=== PATIENT | male | born 1960 | race African-American/Black ===

== ENCOUNTER 2016-03-28 22:23 | Emergency (ER) | payer OTHER ==
[~2016-03-28] VITALS: Ht 170.2 cm; Wt 79.4 kg
[~2016-03-28 22:23] MED LIST: CIPROFLOXACIN500 M2 ORAL; DOXYCYCLINE MO100 MG ORAL; NKM; VIBRAMYCIN100 MG ORAL
[2016-03-28 22:35] VITALS: BP 145/84
[2016-03-28] MEDS ORDERED: Azithromycin 250mg tab ORAL ONE (22:45)
--- NOTE | 2016-03-28 22:47 | Emergency Room Report ---
History of Present Illness General Chief Complaint: Male Urogenital Problems Source: Patient Present Illness [facility] This is a 55-year-old male with no significant past medical history. He's been here several times for same complaint. He complaining of dysuria and a clear discharge. Onset for last 3 days. Said he is sexually active and unprotected sex. Denies any nausea vomiting. Denies any hematuria. Similar symptom this before. Allergies: Coded Allergies: No Known Allergies (Unverified , 03/17/13) Patient History Past Medical History: see triage record, old chart reviewed Past Surgical History: none Pertinent Family History: none Social History: Denies: smoking Immunizations: other Reviewed Nursing Documentation: PMH: Agreed, PSxH: Agreed Nursing Documentation-PMH Past Medical History: No Stated History Review of Systems Eye: Denies: blurred vision, eye pain ENT: Denies: ear pain, nose congestion, throat swelling Respiratory: Denies: cough, shortness of breath Cardiovascular: Denies: chest pain, palpitations Gastrointestinal: Denies: abdominal pain, diarrhea, nausea, vomiting Genitourinary: Reports: discharge, dysuria Musculoskeletal: Denies: back pain, joint pain Skin: Denies: rash Neurological: Denies: headache, numbness Endocrine: Denies: increased thirst, increased urine Hematologic/Lymphatic: Denies: easy bruising All Other Systems: negative except mentioned in HPI Physical Exam Vital Signs Date Time Temp Pulse Resp B/P Pulse Ox O2 Delivery O2 Flow Rate FiO2 03/28/16 22:30 98.1 80 19 145/84 95 Room Air vitals normal Sp02 EP Interpretation: reviewed, normal General Appearance: well appearing, no apparent distress, alert Head: normocephalic, atraumatic Eyes: bilateral eye EOMI, bilateral eye PERRL ENT: hearing grossly normal, normal pharynx Neck: full range of motion, supple, no meningismus Respiratory: chest non-tender, lungs clear, normal breath sounds Cardiovascular #1: regular rate, rhythm, no murmur Gastrointestinal: normal bowel sounds, non tender, no mass, no organomegaly, no bruit, non-distended Genitourinary: scrotum normal, other - Penis: Clear discharge. No testicle tenderness. Musculoskeletal: back normal, gait/station normal, normal range of motion Neurologic: alert, oriented x3 Psychiatric: mood/affect normal Skin: warm/dry Medical Decision Making Diagnostic Impression: Primary Impression: urethritis ER Course Patient with urethritis. Most likely Chlamydia. Strongly urged patient use condoms. He is increased risk for HIV, hepatitis, syphilis and other STDs. No evidence of testicular torsion. Last Vital Signs Date Time Temp Pulse Resp B/P Pulse Ox O2 Delivery O2 Flow Rate FiO2 03/28/16 22:35 98.1 82 19 145/84 95 Room Air Status: improved Disposition: HOME, SELF-CARE Condition: Stable Patient Instructions: Urethritis, Adult Additional Instructions: Always use condoms with intercourse. Urine crease this for HIV, hepatitis, syphilis and other STDs. Recommend outpatient testing for these. Followup your doctor in a week. Return if symptom worsen. Have your partners treated also. NICOLAS SHEA M.D. Mar 28, 2016 22:47
[2016-03-28] MEDS ORDERED: Lidocaine 1% MPF 10mg/ml 5ml ONE (22:55)
[2016-03-28 23:03] VITALS: BP 145/84
== END 2016-03-28 23:03 | disposition home or self-care (01) ==
LOC: EMR 22:35
DX: N34.2 Other urethritis (principal)
CPT/HCPCS: 96372; 99283; J0696

== ENCOUNTER 2016-09-23 09:58 | Emergency (ER) | payer OTHER ==
[~2016-09-23] VITALS: Ht 170.2 cm; Wt 79.4 kg
[2016-09-23 10:24] VITALS: BP 157/87
[2016-09-23 10:36] LABS: APPEARANCE,URINE CLEAR; KETONES,URINE 1+ (NEGATIVE); LEUKOCYTE ESTERASE ,URINE 1+ (NEGATIVE); NITRITE,URINE NEGATIVE (NEGATIVE); PH,URINE 5 (4.5-8.0); PROTEIN,URINE NEGATIVE (NEGATIVE); UROBILINOGEN,URINE NORMAL MG/DL (0.0-1.0)
--- NOTE | 2016-09-23 10:44 | Emergency Room Report ---
History of Present Illness General Chief Complaint: Male Urogenital Problems Source: Patient Present Illness HPI Patient with unprotected sex with "old friend". Dysuria now. No lymph node swell, rashes, hematuria, discharge, fevers, joint pain, eye d/c. Reports 10/ 10 pain in penis. No chest pain, dyspnea, abdominal pain. Has had before. Allergies: Coded Allergies: No Known Allergies (Unverified , 03/17/13) Patient History Past Medical History: see triage record Social History: Denies: smoking Social History Narrative at home Reviewed Nursing Documentation: PMH: Agreed, PSxH: Agreed Nursing Documentation-PMH Past Medical History: No Stated History Review of Systems All Other Systems: negative except mentioned in HPI Physical Exam Vital Signs Date Time Temp Pulse Resp B/P Pulse Ox O2 Delivery O2 Flow Rate FiO2 09/23/16 10:02 97.3 74 16 157/87 97 Room Air Sp02 EP Interpretation: reviewed, normal General Appearance: well appearing, no apparent distress Head: normocephalic, atraumatic Eyes: bilateral eye normal inspection ENT: hearing grossly normal, normal voice Neck: full range of motion, supple Respiratory: no respiratory distress, speaking full sentences Genitourinary: normal inspection, no CVA tenderness Musculoskeletal: no calf tenderness Neurologic: alert, oriented x3, normal gait, grossly normal Psychiatric: mood/affect normal Skin: no rash Medical Decision Making Diagnostic Impression: Primary Impression: Exposure to sexually transmitted disease (STD) ER Course Patient with dysuria after unprotected sex. DDx: STD, UTI, urethritis. Will treat for STD and send serologies. Advised to get further testing. Patient stable for outpatient observation and treatment. Laboratory Tests Test 09/23/16 10:15 Urine Color Yellow Urine Appearance Clear Urine pH 5 (4.5-8.0) Urine Specific [place] 1.020 (1.005-1.035) Urine Protein Negative (NEGATIVE) Urine Glucose (UA) Negative (NEGATIVE) Urine Ketones 1+ (NEGATIVE) H Urine Occult Blood Negative (NEGATIVE) Urine Nitrite Negative (NEGATIVE) Urine Bilirubin Negative (NEGATIVE) Urine Urobilinogen Normal MG/DL (0.0-1.0) Urine Leukocyte Esterase 1+ (NEGATIVE) H Urine RBC 0-2 /HPF (0 - 0) H Urine WBC 0-2 /HPF (0 - 0) Urine Squamous Epithelial Cells Occasional /LPF Urine Bacteria Occasional /HPF (NONE) Urine Mucus Few /LPF (NONE/OCC) H Chlamydia trachomatis RNA Pending Neisseria gonorrhoeae RNA Pending Last Vital Signs Date Time Temp Pulse Resp B/P Pulse Ox O2 Delivery O2 Flow Rate FiO2 09/23/16 13:30 97.3 16 157/87 97 Room Air 09/23/16 10:02 74 Status: improved Disposition: HOME, SELF-CARE Condition: Stable Scripts Doxycycline Hyclate* (VIBRAMYCIN*) 100 Mg Capsule 100 MG ORAL EVERY 12 HOURS, #14 CAP 0 Refills Prov: Sylvester Saleh M.D. 09/23/16 Referrals: Peggy MOSER,REFERRING (PCP) Sylvester Saleh M.D. Sep 23, 2016 10:44
[2016-09-23] MEDS ORDERED: VIBRAMYCIN100 MG ORAL (10:45)
[2016-09-23 10:49] LABS: BACTERIA,URINE OCCASIONAL /HPF; MUCUS,URINE FEW /LPF (NONE/OCC); RBC,URINE 0-2 /HPF (0 - 0); SQUAMOUS EPITHELIAL CELL,UR OCCASIONAL /LPF (NONE/OCC); WBC,URINE 0-2 /HPF (0 - 0)
[2016-09-23 13:30] VITALS: BP 157/87
== END 2016-09-23 13:32 | disposition home or self-care (01) ==
LOC: EMR 10:38
DX: R30.0 Dysuria (principal); A64 Unspecified sexually transmitted disease
CPT/HCPCS: 81003; 87491; 87590; 96372; 99283; J0696

== ENCOUNTER 2017-05-08 19:03 | Emergency (ER) | payer OTHER ==
[~2017-05-08] VITALS: Ht 170.2 cm; Wt 83.9 kg
[2017-05-08] MEDS ORDERED: Tetracaine 0.5% Opth 4ml Soln RIGHT EYE ONE (19:45)
[2017-05-08] MEDS ORDERED: Fluorescein Strips BOTH EYES ONE (19:45)
[2017-05-08] MEDS ORDERED: Tetracaine 0.5% Opth 4ml Soln LEFT EYE ONE (19:45)
--- NOTE | 2017-05-08 19:48 | Emergency Room Report ---
History of Present Illness General Chief Complaint: Eye Problems Source: Patient Present Illness HPI 57 yo male patient presents to ER complaining of bilateral eye itching [id number]. Patient reports crusting of eyelids in the morning; states crust is yellow in color. Patient reports using saline eye drops with no relief of symptoms. Patient denies allergies. Patient complains of FB sensation. Patient denies pain with eye movement. Patient denies chemicals spilled on eyes. Patient denies photophobia. Patient denies loss of vision, hearing problems, HAYES. Patient denies fever, chest pain, SOB, nausea, vomiting. Patient reports he wears glasses for reading only; denies wearing contact lenses. Allergies: Coded Allergies: No Known Allergies (Unverified , 03/17/13) Patient History Past Medical History: see triage record Social History: Denies: smoking, alcohol use, drug use Reviewed Nursing Documentation: PMH: Agreed, PSxH: Agreed Nursing Documentation-PMH Past Medical History: No Stated History Review of Systems All Other Systems: negative except mentioned in HPI Physical Exam Vital Signs Date Time Temp Pulse Resp B/P (MAP) Pulse Ox O2 Delivery O2 Flow Rate FiO2 05/08/17 19:28 98.0 81 18 149/79 98 Room Air 98.1 Sp02 EP Interpretation: reviewed, normal General Appearance: well appearing, no apparent distress, alert, GCS 15, non- toxic Head: normocephalic, atraumatic Eyes: bilateral eye normal inspection, bilateral eye PERRL, bilateral eye fluoroscene uptake - none, bilateral eye EOMI, bilateral eye visual acuity - 20/ 15 OD, 20/15 OS, 20/15 OU per nurse report, bilateral eye Scleral Injection - mild, bilateral eye other - no periorbital edema, no ecchymosis, negative raccon eyes ENT: hearing grossly normal, normal pharynx, normal voice, TMs + canals normal , uvula midline, moist mucus membranes Neck: normal inspection, full range of motion, no bony tend Respiratory: normal inspection, lungs clear, normal breath sounds, no rhonchi, no accessory muscle use, no wheezing, speaking full sentences Cardiovascular #1: regular rate, rhythm Musculoskeletal: back normal, digits/nails normal, gait/station normal, normal range of motion, no calf tenderness Neurologic: alert, oriented x3, responsive, motor strength/tone normal, normal gait Psychiatric: mood/affect normal Skin: no rash Lymphatic: no adenopathy Medical Decision Making PA Attestation Dr. Saleh is my supervising Physician whom patient management has been discussed with. Diagnostic Impression: Primary Impression: Bacterial conjunctivitis ER Course Pt. presents to the ED c/o itchy eyes bilaterally. Ddx considered but are not limited to allergic conjunctivitis, bacterial conjunctivitis, corneal abrasion, URI, sinusitis. Vital signs: are WNL, pt. is afebrile Ordered fluorescein strips and tetracaine drops. VA performed, results normal. ER COURSE: Applied tetracaine medication to both eyes, bilaterally. Touched fluorescein strip to eyes, bilaterally. Separate strips used for each eye. No increased uptake of fluorescein under Mercer lamp; negative for corneal abrasion, herpetic keratitis. Informed patient of results. Informed patient likely bacterial conjunctivitis, will treat with antibiotic eye drops. Patient seen and evaluated by Dr. Saleh; agrees with diagnosis and treatment plan. DISCHARGE: Rx provided for Ocufloxacin drops. Rx provided for Opcon-A eye drops. Informed patient to apply to both eyes. Informed patient to not touch eye drop bottle directly to eyes or bottle will be contaminated. Informed patient to wash hands and avoid touching eyes throughout the day. At this time pt. is stable for d/c to home. Will provide printed patient care instructions, and any necessary prescriptions. Patient instructed to follow up with primary care provider and discuss further follow up with stoker installer. Care plan and follow up instructions have been discussed with the patient prior to discharge. Patient questions asked and answered. Patient reports understanding and agreement to treatment plan. ER precautions given to patient. Patient instructed to return to ER immediately for any new or worsening of symptoms. Last Vital Signs Date Time Temp Pulse Resp B/P (MAP) Pulse Ox O2 Delivery O2 Flow Rate FiO2 05/08/17 19:28 98.0 81 18 149/79 98 Room Air 98.1 Disposition: HOME, SELF-CARE Condition: Stable Scripts Naphazoline Hcl/Pheniramine (OPCON-A EYE DROPS) 15 Ml Drops 4 ML OP FOUR TIMES A DAY for 7 Days, ML Prov: Shay Gamble P.A. 05/08/17 Ofloxacin (OCUFLOX) 5 Ml Drops 2 DROP OP FOUR TIMES A DAY for 7 Days, #5 ML Prov: Shay Gamble P.A. 05/08/17 Patient Instructions: Bacterial Conjunctivitis, [id number] Additional Instructions: Followup with primary care provider in 3 -5 days. Followup with stoker installer for eye examination. Take medications as directed. Patient questions asked and answered. ER precautions given, patient instructed to return to ER immediately for any new or worsening of symptoms. Shay Gamble May 08, 2017 19:47
[2017-05-08 20:11] VITALS: BP 144/77
[2017-05-08] MEDS ORDERED: OCUFLOX5 ML OP (20:12)
[2017-05-08] MEDS ORDERED: OPCON-A EYE DRO15 ML OP (20:12)
[2017-05-08 20:21] VITALS: BP 144/77
== END 2017-05-08 20:19 | disposition home or self-care (01) ==
LOC: EMR 19:44
DX: H10.89 Other conjunctivitis (principal); B96.89 Other specified bacterial agents as the cause of diseases classified elsewhere
CPT/HCPCS: 99283

== ENCOUNTER 2017-06-17 06:06 | Emergency (ER) | payer OTHER ==
[~2017-06-17] VITALS: Ht 170.2 cm; Wt 79.4 kg
[~2017-06-17 06:06] MED LIST changes: +OCUFLOX5 ML OP; +OPCON-A EYE DRO15 ML OP
[2017-06-17 06:25] VITALS: BP 141/86
[2017-06-17] MEDS: Lidocaine 1% MPF 10mg/ml 5ml INJ ONE (06:58)
[2017-06-17] MEDS: Azithromycin 250mg tab ORAL ONE (06:59)
[2017-06-17 07:08] VITALS: BP 141/86
--- NOTE | 2017-06-17 08:08 | Emergency Room Report ---
History of Present Illness General Chief Complaint: Male Urogenital Problems Source: Patient Present Illness HPI 57-year-old male presents ED for evaluation. States that recently had unprotected sex with his ex-. Has noticed burn full urination and discharge. White discharge. Denies fevers or chills. Denies scrotal tenderness. States he's had similar presentation in the past and had been treated for presumed STD. No other aggravating relieving factors. Denies any other associated symptoms Allergies: Coded Allergies: No Known Allergies (Unverified , 03/17/13) Patient History Past Medical History: none Past Surgical History: none Pertinent Family History: none Social History: Denies: smoking, alcohol use, drug use Immunizations: UTD Reviewed Nursing Documentation: PMH: Agreed; PSxH: Agreed Nursing Documentation-PMH Past Medical History: No Stated History Review of Systems All Other Systems: negative except mentioned in HPI Physical Exam Vital Signs Date Time Temp Pulse Resp B/P (MAP) Pulse Ox O2 Delivery O2 Flow Rate FiO2 06/17/17 06:12 97.4 72 18 141/86 98 Room Air 97.3 Sp02 EP Interpretation: reviewed, normal General Appearance: no apparent distress, alert, GCS 15, non-toxic Head: normocephalic, atraumatic Eyes: bilateral eye normal inspection, bilateral eye PERRL ENT: hearing grossly normal, normal pharynx, no angioedema, normal voice Neck: full range of motion, supple/symm/no masses Respiratory: chest non-tender, lungs clear, normal breath sounds, speaking full sentences Cardiovascular #1: regular rate, rhythm, no edema Cardiovascular #2: 2+ carotid (R), 2+ carotid (L), 2+ radial (R), 2+ radial (L) , 2+ dorsalis pedis (R), 2+ dorsalis pedis (L) Gastrointestinal: normal bowel sounds, non tender, soft, non-distended, no guarding, no rebound Rectal: deferred Genitourinary: normal inspection, no CVA tenderness Musculoskeletal: back normal, gait/station normal, normal range of motion, non- tender Neurologic: alert, oriented x3, responsive, motor strength/tone normal, sensory intact, speech normal Psychiatric: judgement/insight normal, memory normal, mood/affect normal, no suicidal/homicidal ideation Reflexes: 3+ bicep (R), 3+ bicep (L), 3+ tricep (R), 3+ tricep (L), 3+ knee (R) , 3+ knee (L) Skin: normal color, no rash, warm/dry, well hydrated Lymphatic: no adenopathy Medical Decision Making Diagnostic Impression: Primary Impression: urethritis ER Course Hospital Course 57-year-old male presents ED with urethral discharge. History of unprotected sex Differential diagnoses include: trichimonas, gonorrhea, chlamydia Clinical course Patient placed on stretcher. After initial history physical exam reveals a young male in no acute distress. Physical exam unremarkable. No testicular pain or swelling. No noted urethral discharge We will treat him clinically for gonorrhea/Chlamydia Given azithromycin/Rocephin in ED Diagnosis - STI, urethritis Stable and discharged home. Instructed to followup with PMD. Return to ED if symptoms recur or worsen Last Vital Signs Date Time Temp Pulse Resp B/P (MAP) Pulse Ox O2 Delivery O2 Flow Rate FiO2 18 07:08 97.3 72 18 141/86 98 Room Air 97.3 Status: improved Disposition: HOME, SELF-CARE Condition: Stable Referrals: Peggy MOSERREFERRING (PCP) Patient Instructions: Urethritis, Adult Neno Banks MD Jun 17, 2017 08:08
== END 2017-06-17 07:08 | disposition home or self-care (01) ==
LOC: EMR 06:27
DX: N34.2 Other urethritis (principal)
CPT/HCPCS: 96372; 99283; J0696

== ENCOUNTER 2017-12-10 10:21 | Emergency (ER) | payer OTHER ==
[~2017-12-10] VITALS: Ht 170.2 cm; Wt 83.9 kg
[2017-12-10 10:24] VITALS: BP 132/83
[2017-12-10] MEDS ORDERED: NKM (10:28)
[2017-12-10] MEDS ORDERED: ZYRTEC10 MG ORAL (10:41)
--- NOTE | 2017-12-10 10:41 | Emergency Room Report ---
History of Present Illness General Chief Complaint: Eye Problems Source: Patient Present Illness [facility] This patient c/o red, itchy, irritated eyes for about a month; most days. He has tried OTC eye drops. No exposure. No fever, no URI complaints. No PMH/Meds. Allergies: Coded Allergies: No Known Allergies (Unverified , 03/17/13) Nursing Documentation-PMH Past Medical History: No Stated History Review of Systems Constitutional: Reports: no symptoms Eye: Reports: see HPI, other - itchy eyes ENT: Reports: no symptoms Respiratory: Reports: no symptoms Cardiovascular: Reports: no symptoms Gastrointestinal: Reports: no symptoms Genitourinary: Reports: no symptoms Musculoskeletal: Reports: no symptoms Skin: Reports: no symptoms Psychiatric: Reports: no symptoms Neurological: Reports: no symptoms Endocrine: Reports: no symptoms Hematologic/Lymphatic: Reports: no symptoms Allergic: Reports: no symptoms All Other Systems: negative except mentioned in HPI Physical Exam Vital Signs Date Time Temp Pulse Resp B/P (MAP) Pulse Ox O2 Delivery O2 Flow Rate FiO2 12/10/17 10:24 98.7 79 14 132/83 99 Room Air 98.8 Sp02 EP Interpretation: reviewed, normal General Appearance: normal inspection, well appearing, no apparent distress, alert, GCS 15, non-toxic Head: normocephalic, atraumatic Eyes: bilateral eye normal inspection - very mild erythema bilat, bilateral eye PERRL, bilateral eye EOMI ENT: normal ENT inspection, hearing grossly normal, normal pharynx, no angioedema, normal voice, moist mucus membranes Neck: normal inspection, full range of motion, supple, no meningismus, no bony tend Respiratory: normal inspection, lungs clear, normal breath sounds, no rhonchi, no respiratory distress, no retraction, no accessory muscle use, no wheezing Cardiovascular #1: normal inspection, regular rate, rhythm, no edema Gastrointestinal: normal inspection, normal bowel sounds, non tender, soft, no mass, non-distended Musculoskeletal: gait/station normal, normal range of motion Neurologic: normal inspection, alert, oriented x3, responsive, motor strength/ tone normal Psychiatric: normal inspection, judgement/insight normal, memory normal Suicide Risk Assessment: Suicidal Ideation: No Had intent to initiate attempt: No Pt's plan for suicide attempt: No Has means to complete attempt: No Skin: normal inspection, normal color, no rash, warm/dry Medical Decision Making Diagnostic Impression: Primary Impression: Eye problem ER Course possibly allergic; the only option is to try an allergy med; could be seasonal, advised patient to wait if this med doesn't help Last Vital Signs Date Time Temp Pulse Resp B/P (MAP) Pulse Ox O2 Delivery O2 Flow Rate FiO2 12/10/17 10:24 14 132/83 99 Room Air 12/10/17 10:24 98.7 79 98.8 Status: improved Disposition: HOME, SELF-CARE Condition: Stable Scripts Cetirizine Hcl* (ZYRTEC*) 10 Mg Tablet 10 MG ORAL DAILY, #30 TAB 0 Refills Prov: Blayne Castillo M.D. 12/10/17 Patient Instructions: Allergic Conjunctivitis, [id number] Blayne Castillo M.D. Dec 10, 2017 10:41
[2017-12-10 11:05] VITALS: BP 132/83
== END 2017-12-10 11:06 | disposition home or self-care (01) ==
LOC: EMR 10:55
DX: H57.8 Other specified disorders of eye and adnexa (principal)
CPT/HCPCS: 99282

== ENCOUNTER 2018-03-10 07:53 | Emergency (ER) | payer OTHER ==
[~2018-03-10] VITALS: Ht 170.2 cm; Wt 83.9 kg
[~2018-03-10 07:53] MED LIST changes: +ZYRTEC10 MG ORAL
[2018-03-10] MEDS ORDERED: NKM (08:06)
[2018-03-10 08:13] VITALS: BP 154/91
[2018-03-10] MEDS ORDERED: PREDNISONE20 MG ORAL (08:31)
[2018-03-10] MEDS ORDERED: CEPHALEXIN500 MG ORAL (08:31)
[2018-03-10] MEDS ORDERED: DIPHENHYDRAMINE25 M1 ORAL (08:31)
[2018-03-10 08:36] VITALS: BP 154/91
--- NOTE | 2018-03-10 09:31 | Emergency Room Report ---
History of Present Illness General Chief Complaint: General Complaint Source: Patient Present Illness HPI 57-year-old male presents ED for evaluation. Patient complaining of swelling to his left eye the last 3 days. States that 3 days ago he got a tooth extraction done by dentist. Patient thinks that this is an infection. Denies any pain. Denies any fevers or chills. Denies any change in visual acuity. Denies any discharge. No other aggravating relieving factors. Denies any other associated symptoms Allergies: Coded Allergies: No Known Allergies (Unverified , 03/17/13) Patient History Past Medical History: none Past Surgical History: none Pertinent Family History: none Social History: Denies: smoking, alcohol use, drug use Immunizations: UTD Reviewed Nursing Documentation: PMH: Agreed; PSxH: Agreed Nursing Documentation-PMH Past Medical History: No Stated History Review of Systems All Other Systems: negative except mentioned in HPI Physical Exam Vital Signs Date Time Temp Pulse Resp B/P (MAP) Pulse Ox O2 Delivery O2 Flow Rate FiO2 03/10/18 08:02 98.1 82 15 154/91 94 03/10/18 08:13 Room Air Sp02 EP Interpretation: reviewed, normal General Appearance: no apparent distress, alert, GCS 15, non-toxic Head: normocephalic Eyes: left eye other - swelling of upper and lower eyelids; bilateral eye normal inspection, bilateral eye PERRL, bilateral eye EOMI, bilateral eye visual acuity ENT: hearing grossly normal, normal pharynx, no angioedema, normal voice, other - s/p dental extraction on left Neck: normal inspection Respiratory: normal inspection Cardiovascular #1: normal inspection Gastrointestinal: normal inspection Rectal: deferred Genitourinary: no CVA tenderness Musculoskeletal: normal inspection Neurologic: alert, oriented x3, responsive, motor strength/tone normal, sensory intact, speech normal Psychiatric: normal inspection Skin: normal inspection Lymphatic: normal inspection Medical Decision Making Diagnostic Impression: Primary Impression: Swelling around both eyes ER Course Hospital Course 57 yo M presents with swelling to L eyelids Differential diagnoses include: Cellulitis, dermatitis, insect bite, abscess Clinical course Patient placed on stretcher. After initial history, physical exam reveals a middle aged male in no acute distress. On exam there is swelling to the left upper and lower eyelid. No fluctuance. No erythema. Nontender. There is evidence of dental extraction but no surrounding swelling or erythema or fluctuance. I discussed with the patient. I do not believe this is an infection but likely allergy. Patient states he has been using allergy eyedrops prior to onset of swelling. Likely environmental allergies. We will attempt course of prednisone and Benadryl. However if symptoms do not improve after 4-5 days, I will also provide a prescription for antibiotics. Safe for discharge or close outpatient follow-up. Patient does not have a PMD. We'll provide PMD referrals Diagnosis - swelling around eyes stable and discharged to home with prescription for keflex, benedryl, prednisone. Instructed to followup with PMD. Instructed return to ED if symptoms recur or worsen Last Vital Signs Date Time Temp Pulse Resp B/P (MAP) Pulse Ox O2 Delivery O2 Flow Rate FiO2 03/10/18 08:36 98.1 82 15 154/91 94 Room Air Status: improved Disposition: HOME, SELF-CARE Condition: Stable Scripts Cephalexin* (KEFLEX*) 500 Mg Capsule 500 MG ORAL EVERY 6 HOURS for 7 Days, CAP Prov: Neno Banks MD 03/10/18 Prednisone* (PREDNISONE*) 20 Mg Tablet 40 MG ORAL DAILY for 5 Days, TAB Prov: Neno Banks MD 03/10/18 Diphenhydramine Hcl* (DIPHENHYDRAMINE HCL*) 25 Mg Capsule 25 MG ORAL Q6H PRN for Itching for 5 Days, #30 CAP 0 Refills Prov: Neno Banks MD 03/10/18 Referrals: NOT CHOSEN [facility]/,REFERRING [facility] Peggy Cuello [facility]. [facility] Patient Instructions: Allergies, [id number], Preseptal Cellulitis, Adult Neno Banks MD Mar 10, 2018 09:31
== END 2018-03-10 08:37 | disposition home or self-care (01) ==
LOC: EMR 08:35
DX: H57.9 Unspecified disorder of eye and adnexa (principal)
CPT/HCPCS: 99283

== ENCOUNTER 2018-06-26 22:35 | Emergency (ER) | payer OTHER ==
[~2018-06-26] VITALS: Ht 170.2 cm; Wt 83.9 kg
[~2018-06-26 22:35] MED LIST changes: +CEPHALEXIN500 MG ORAL; +DIPHENHYDRAMINE25 M1 ORAL; +PREDNISONE20 MG ORAL
--- NOTE | 2018-06-26 22:42 | NUR ---
ED Nurse Note: Patient walked into eD c/o penile burnign for the past 3 days, patietn states he had intercourse with his significant other 3 days ago, states that peeing is fine however it does burn. patient is alert and oriented x4, ambulatory with a steady gait, VSS
[2018-06-26 22:46] VITALS: BP 123/86
[2018-06-26] MEDS ORDERED: Lidocaine 1% MPF 10mg/ml 5ml INJ ONE (23:00)
[2018-06-26] MEDS ORDERED: Azithromycin 250mg tab ORAL ONE (23:00)
--- NOTE | 2018-06-26 23:02 | NUR ---
ER DISCHARGE NOTE: Patient is cleared to be discharged per ERMD, pt is aox4, on room air, with stable vital signs. pt was given dc and prescription instructions, pt was able to verbalize understanding, pt id band removed without complications. pt is able to ambulate with steady gait. pt took all belongings.
[2018-06-26 23:03] VITALS: BP 118/82
--- NOTE | 2018-06-27 01:14 | Emergency Room Report ---
History of Present Illness General Chief Complaint: Male Urogenital Problems Source: Patient Present Illness HPI 58-year-old male presents ED for evaluation. Complaining of dysuria and white urethral discharge for the last 3 days. Burning, 7 out of 10, nonradiating. Denies fevers or chills. Denies flank pain. Denies nausea or vomiting. States he's had a recent unprotected sex. No other aggravating relieving factors. Denies any other associated symptoms Allergies: Coded Allergies: No Known Allergies (Unverified , 03/17/13) Patient History Past Medical History: none Past Surgical History: none Pertinent Family History: none Social History: Denies: smoking, alcohol use, drug use Immunizations: UTD Reviewed Nursing Documentation: PMH: Agreed; PSxH: Agreed Nursing Documentation-PMH Past Medical History: No Stated History Review of Systems All Other Systems: negative except mentioned in HPI Physical Exam Vital Signs Date Time Temp Pulse Resp B/P (MAP) Pulse Ox O2 Delivery O2 Flow Rate FiO2 06/26/18 22:40 98.2 80 16 123/86 96 Room Air Sp02 EP Interpretation: reviewed, normal General Appearance: no apparent distress, alert, GCS 15, non-toxic Head: normocephalic, atraumatic Eyes: bilateral eye normal inspection, bilateral eye PERRL ENT: hearing grossly normal, normal pharynx, no angioedema, normal voice Neck: full range of motion, supple/symm/no masses Respiratory: chest non-tender, lungs clear, normal breath sounds, speaking full sentences Cardiovascular #1: regular rate, rhythm, no edema Cardiovascular #2: 2+ carotid (R), 2+ carotid (L), 2+ radial (R), 2+ radial (L) , 2+ dorsalis pedis (R), 2+ dorsalis pedis (L) Gastrointestinal: normal bowel sounds, non tender, soft, non-distended, no guarding, no rebound Rectal: deferred Genitourinary: normal inspection, no CVA tenderness Musculoskeletal: back normal, gait/station normal, normal range of motion, non- tender Neurologic: alert, oriented x3, responsive, motor strength/tone normal, sensory intact, speech normal Psychiatric: judgement/insight normal, memory normal, mood/affect normal, no suicidal/homicidal ideation Reflexes: 3+ bicep (R), 3+ bicep (L), 3+ tricep (R), 3+ tricep (L), 3+ knee (R) , 3+ knee (L) Skin: normal color, no rash, warm/dry, well hydrated Lymphatic: no adenopathy Medical Decision Making Diagnostic Impression: Primary Impression: urethritis ER Course Hospital Course 58-year-old male presents ED with whitish urethral discharge. History of unprotected sex Differential diagnoses include: trichimonas, gonorrhea, chlamydia Clinical course Patient placed on stretcher. After initial history physical exam reveals a middle aged male in no acute distress. Physical exam unremarkable. No testicular pain or swelling. We will treat him clinically for gonorrhea/Chlamydia Given azithromycin/Rocephin in ED. discussed findings with patient. Safe for discharge or close outpatient follow-up. We'll provide STD clinic referrals Diagnosis - urethritis Stable and discharged home. Instructed to followup with PMD. Return to ED if symptoms recur or worsen Last Vital Signs Date Time Temp Pulse Resp B/P (MAP) Pulse Ox O2 Delivery O2 Flow Rate FiO2 06/26/18 23:03 98.2 82 16 118/82 96 Room Air Status: improved Disposition: HOME, SELF-CARE Condition: Stable Referrals: Peggy MOSER,REFERRING (PCP) [facility] *Patients are seen by appointment only* Patient Instructions: Urethritis, Adult Neno Banks MD Jun 27, 2018 01:14
== END 2018-06-26 23:03 | disposition home or self-care (01) ==
LOC: EMR 22:57
DX: N34.2 Other urethritis (principal)
CPT/HCPCS: 96372; 99283; J0696

== ENCOUNTER 2018-10-26 21:00 | Emergency (ER) | payer OTHER ==
[~2018-10-26] VITALS: Ht 170.2 cm; Wt 81.6 kg
--- NOTE | 2018-10-26 21:20 | NUR ---
ED Nurse Note: pt walked in c/o discomfort and itching in both eyes for 2 wks, reports vision blurriness, will cont montior.
[2018-10-26] MEDS ORDERED: BENADRYL25 MG ORAL (21:41)
[2018-10-26] MEDS ORDERED: GENTAK5 ML BOTH EYES (21:41)
[2018-10-26] MEDS ORDERED: MEDROL DOSEPAK4 MG ORAL (21:41)
--- NOTE | 2018-10-26 21:45 | Emergency Room Report ---
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 and feels that there were could have been Some contact about a week ago Denies any change in vision denies any pain to his eyes denies any headache Most of the discomfort is bilateral lower eyelids Denies any travel or trauma Allergies: Coded Allergies: No Known Allergies (Unverified , 03/17/13) Patient History Past Medical History: see triage record Pertinent Family History: none Reviewed Nursing Documentation: PMH: Agreed; PSxH: Agreed Nursing Documentation-PMH Past Medical History: No Stated History Review of Systems All Other Systems: negative except mentioned in HPI Physical Exam Vital Signs Date Time Temp Pulse Resp B/P (MAP) Pulse Ox O2 Delivery O2 Flow Rate FiO2 10/26/18 21:08 98.4 72 14 156/95 (115) 96 Room Air Sp02 EP Interpretation: reviewed, normal General Appearance: well appearing, no apparent distress Head: normocephalic, atraumatic Eyes: bilateral eye EOMI, bilateral eye other - Bilateral conjunctival mild erythema also some increased irritation to bilateral lower eyelids, no obvious cellulitis no hyphema ENT: normal pharynx, no angioedema Neck: supple Respiratory: chest non-tender, lungs clear Cardiovascular #1: regular rate, rhythm Gastrointestinal: non tender, soft Genitourinary: no CVA tenderness Musculoskeletal: normal inspection Neurologic: alert, oriented x3, responsive Skin: other - As above Lymphatic: no adenopathy Medical Decision Making Diagnostic Impression: Primary Impression: allergic conjunctivitis ER Course Multiple differentials are in consideration including but not limited to contact dermatitis Allergic reaction Other infectious pathology Patient otherwise has a benign medical evaluation does not Requires staining as the conjunctival irritation is very minimal and is stable for initial conservative outpatient trial Last Vital Signs Date Time Temp Pulse Resp B/P (MAP) Pulse Ox O2 Delivery O2 Flow Rate FiO2 10/26/18 21:08 98.4 72 14 156/95 (115) 96 Room Air Status: unchanged Disposition: HOME, SELF-CARE Condition: Stable Scripts Gentamicin Sulfate* (GENTAK*) 5 Ml Drops 1 DROP BOTH EYES Q4H for 5 Days, #1 DROP 0 Refills Prov: Dillon Fuentes DO 10/26/18 Diphenhydramine Hcl* (BENADRYL*) 25 Mg Capsule 25 MG ORAL Q6H PRN for Itching, #20 CAP Prov: Dillon Fuentes DO 10/26/18 Methylprednisolone (Methylprednisolone*) 4MG Dspk 4 MG ORAL DIRECTED for 6 Days, #21 EA 0 Refills Day 1: Two tablets before breakfast, one after lunch, one after dinner, and two at bedtime. If started late in the day, take all six tablets at once or divide into two or three doses, unless otherwise directed by prescriber. Day 2: One tablet before breakfast, one after lunch, one after dinner, and two at bedtime Day 3: One tablet before breakfast, one after lunch, one after dinner, and one at bedtime Day 4: One tablet before breakfast, one after lunch, and one at bedtime Day 5: One tablet before breakfast and one at bedtime Day 6: One tablet before breakfast Prov: Dillon Fuentes DO 10/26/18 Patient Instructions: Allergic Conjunctivitis, [id number] Additional Instructions: Patient is provided with the discharge instructions notified to follow up with primary doctor in the next 2-3 days otherwise return to the er with any worsening symptoms. Please note that this report is being documented using [employer] technology. This can lead to erroneous entry secondary to incorrect interpretation by the dictating instrument. Dillon Fuentes DO Oct 26, 2018 21:45
--- NOTE | 2018-10-26 21:48 | NUR ---
ED Nurse Note: pt cleared to be d/c per ERMD, pt discharge and aftercare instruction provided w/ prescription, pt education done via discussion and handout, pt advised to follow up with pcp or return to ed if changes in condition, vss, ambulatory w/ steady gait, left w/ all belongings.
[2018-10-26 21:50] VITALS: BP 145/92
== END 2018-10-26 21:48 | disposition home or self-care (01) ==
LOC: EMR 21:45
DX: H10.13 Acute atopic conjunctivitis, bilateral (principal)
CPT/HCPCS: 99282

== ENCOUNTER 2018-11-14 21:07 | Emergency (ER) | payer OTHER ==
[~2018-11-14] VITALS: Ht 170.2 cm; Wt 83.9 kg
[~2018-11-14 21:07] MED LIST changes: +BENADRYL25 MG ORAL; +GENTAK5 ML BOTH EYES; +MEDROL DOSEPAK4 MG ORAL
[2018-11-14 21:20] VITALS: BP 162/95
[2018-11-14] MEDS ORDERED: Lidocaine 1% MPF 10mg/ml 5ml INJ ONE (21:30)
[2018-11-14] MEDS ORDERED: Azithromycin 250mg tab ORAL ONE (21:30)
--- NOTE | 2018-11-14 21:30 | Emergency Room Report ---
History of Present Illness General Chief Complaint: Male Urogenital Problems Source: Patient Present Illness HPI 58-year-old male presents with dysuria x6 days, patient states that he has burning sensation after unprotected sex 7 days ago, no fever no chills, no aggravating or alleviating factors, severity is mild, only when he urinates. Allergies: Coded Allergies: No Known Allergies (Unverified , 03/17/13) Patient History Past Medical History: see triage record Reviewed Nursing Documentation: PMH: Agreed; PSxH: Agreed Nursing Documentation-PMH Past Medical History: No Stated History Review of Systems All Other Systems: negative except mentioned in HPI Physical Exam Vital Signs Date Time Temp Pulse Resp B/P (MAP) Pulse Ox O2 Delivery O2 Flow Rate FiO2 11/14/18 21:19 98.4 75 18 162/95 (117) 98 Room Air Sp02 EP Interpretation: reviewed, normal General Appearance: well appearing, no apparent distress, alert Head: normocephalic, atraumatic Eyes: bilateral eye PERRL, bilateral eye EOMI Neck: supple, thyroid normal, supple/symm/no masses Genitourinary: other - Plastic Bubble Packer Pelon Lima RN, no ulcers on the penis, no discharge, no testicular pain Musculoskeletal: normal inspection Neurologic: alert, oriented x3 Psychiatric: mood/affect normal Skin: no rash, warm/dry Medical Decision Making Diagnostic Impression: Primary Impression: STD (male) ER Course 58-year-old male presents for treatment for STDs, will provide patient with ceftriaxone and azithromycin here, counseled patient to get testing at the health center, disposition home with return precautions Last Vital Signs Date Time Temp Pulse Resp B/P (MAP) Pulse Ox O2 Delivery O2 Flow Rate FiO2 11/14/18 21:19 98.4 75 18 162/95 (117) 98 Room Air Disposition: HOME, SELF-CARE Condition: Stable Referrals: [facility] Peggy Sims [facility] Patient Instructions: Safe Sex, Sexually Transmitted Disease, [id number], Urethritis, Adult Additional Instructions: The patient was provided with discharge instructions, notified to follow-up with a primary care doctor and or specialist in the next 24-48 hours, and to return to the ED if they have worsening of their symptoms. Please note that this report is being documented using [employer] technology. This can lead to erroneous entry secondary to incorrect interpretation by the dictating instrument. Lenny Coello MD Nov 14, 2018 21:30
[2018-11-14 21:45] VITALS: BP 138/86
--- NOTE | 2018-11-14 21:45 | NUR ---
ED Nurse Note: pt cleared to be d/c per ERMD, pt discharge and aftercare instruction provided, pt education done via discussion and hand out, pt advised to follow up with pcp or return to ed if changes in condition, vss, ambulatory w/ steady gait.
== END 2018-11-14 21:45 | disposition home or self-care (01) ==
LOC: EMR 21:30
DX: A64 Unspecified sexually transmitted disease (principal)
CPT/HCPCS: 96372; 99283; J0696; Q0144

== ENCOUNTER 2019-02-09 10:06 | Emergency (ER) | payer OTHER ==
[~2019-02-09] VITALS: Ht 170.2 cm; Wt 86.2 kg
[~2019-02-09 10:06] MED LIST changes: +OFLOXACIN10 ML OP; +ZADITOR5 ML BOTH EYES
--- NOTE | 2019-02-09 10:18 | NUR ---
ED Nurse Note: Pt walked into ED from [facility] with c/o bilat eye pain and swelling. Pt states used hair dye last night and now has pain since this morning 5/10 stinging. Pt has slight swelling under bilat eye and pink sclera. No acute distress.
[2019-02-09 10:20] VITALS: BP 145/76
[2019-02-09] MEDS ORDERED: PREDNISONE20 MG ORAL (10:26)
[2019-02-09] MEDS ORDERED: GENTAK5 ML BOTH EYES (10:28)
--- NOTE | 2019-02-09 10:40 | NUR ---
ER DISCHARGE NOTE: Patient is cleared to be discharged per ERMD, pt is aox4, on room air, with stable vital signs. pt was given dc and prescription instructions, pt was able to verbalize understanding, pt id band and removed. pt is able to ambulate with steady gait. pt took all belongings. Pt educated on eye care.
[2019-02-09 10:44] VITALS: BP 141/64
--- NOTE | 2019-02-11 21:33 | Emergency Room Report ---
History of Present Illness General Chief Complaint: Eye Problems Source: Patient Present Illness HPI Patient is a 58-year-old male presents after increased redness to both eyes. Patient had recently dyed his hair reports having increased eye irritation subsequently. He denies any visual changes. Reports having some discomfort to his scalp. He had previous episodes like this in the past which resolved with oral steroids. He denies any visual change. Allergies: Coded Allergies: No Known Allergies (Unverified , 03/17/13) Patient History Past Medical History: see triage record Reviewed Nursing Documentation: PMH: Agreed; PSxH: Agreed Nursing Documentation-PMH Past Medical History: No Stated History Review of Systems All Other Systems: negative except mentioned in HPI Physical Exam Vital Signs Date Time Temp Pulse Resp B/P (MAP) Pulse Ox O2 Delivery O2 Flow Rate FiO2 02/09/19 10:07 96.1 77 16 174/84 (114) 96 Room Air General Appearance: well appearing, no apparent distress, alert, GCS 15, non- toxic Head: normocephalic, atraumatic Eyes: bilateral eye PERRL, bilateral eye other - Bilateral conjunctival erythema ENT: hearing grossly normal, normal voice Neck: full range of motion, supple Respiratory: no respiratory distress, speaking full sentences Musculoskeletal: no calf tenderness Neurologic: normal gait Psychiatric: mood/affect normal Skin: no rash Medical Decision Making Diagnostic Impression: Primary Impression: Allergic conjunctivitis ER Course Patient presented for bilateral eye redness. Differential diagnosis include was not limited to conjunctivitis, allergic conjunctivitis, foreign body among others. Patient has a benign exam and does not appear to require any imaging or laboratory testing at this time. Patient was noted to have what appears to be allergic or irritant conjunctivitis. He was given prescription for oral steroids. He was advised to discontinue use of product. 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 He was advised to return if any worsening condition or other concerns. Last Vital Signs Date Time Temp Pulse Resp B/P (MAP) Pulse Ox O2 Delivery O2 Flow Rate FiO2 02/09/19 10:44 98.6 54 17 141/64 97 Room Air Status: improved Disposition: HOME, SELF-CARE Condition: Stable Scripts Gentamicin Sulfate* (GENTAK*) 5 Ml Drops 1 DROP BOTH EYES Q4H, #1 DROP 0 Refills Prov: Heber Meehan MD 02/09/19 Prednisone* (PREDNISONE*) 20 Mg Tablet 40 MG ORAL DAILY, #8 TAB Prov: Heber Meehan MD 02/09/19 Referrals: Peggy MOSER,REFERRING (PCP) Patient Instructions: Allergic Conjunctivitis Heber Meehan MD Feb 11, 2019 21:33
== END 2019-02-09 10:44 | disposition home or self-care (01) ==
LOC: EMR 10:25
DX: H10.13 Acute atopic conjunctivitis, bilateral (principal)
CPT/HCPCS: 99282; J7512

== ENCOUNTER 2019-05-09 10:36 | Emergency (ER) | payer OTHER ==
[~2019-05-09] VITALS: Ht 167.6 cm; Wt 86.2 kg
[2019-05-09] MEDS ORDERED: MULTIVITAMINS1 EAC8 ORAL (10:45)
--- NOTE | 2019-05-09 10:50 | NUR ---
ED Nurse Note: Pt ambulated to ED d/t low back pain x 2 weeks per assessment, pt verbalized pain gets worse upon doing ADLs. Pt denies difficulty urinating nor hx of any kidney disease. Pt is able to urinate; obtained urine specimen. Placed on bed and gown; will continue to monitor.
[2019-05-09 10:53] VITALS: BP 159/96
--- NOTE | 2019-05-09 10:55 | NUR ---
ED Nurse Note: ERMD at bedside.
[2019-05-09] MEDS ORDERED: Methocarbamol 750mg tab ORAL ONE (11:00)
[2019-05-09 11:09] LABS: APPEARANCE,URINE CLEAR; BILIRUBIN, URINE NEGATIVE (NEGATIVE); GLUCOSE, URINE (UA) NEGATIVE (NEGATIVE); KETONES,URINE NEGATIVE (NEGATIVE); LEUKOCYTE ESTERASE ,URINE 1+ (NEGATIVE); NITRITE,URINE NEGATIVE (NEGATIVE); PH,URINE 7 (4.5-8.0); PROTEIN,URINE NEGATIVE (NEGATIVE); UROBILINOGEN,URINE NORMAL MG/DL (0.0-1.0)
[2019-05-09 11:13] LABS: COLOR,URINE YELLOW
[2019-05-09] MEDS ORDERED: IBUPROFEN600 MG ORAL (11:50)
[2019-05-09] MEDS ORDERED: LIDODERM700 M1 TOPIC (11:50)
[2019-05-09] MEDS ORDERED: ROBAXIN-750750 MG PO (11:50)
[2019-05-09 11:55] VITALS: BP 159/96
--- NOTE | 2019-05-09 11:56 | NUR ---
discharged home with instruction and rx follow up with pmd
--- NOTE | 2019-05-09 13:27 | Emergency Room Report ---
History of Present Illness General Chief Complaint: Back Pain-No Injury Source: Patient Present Illness HPI 59-year-old male presents ED for evaluation. Complaining of back pain. Started 2 weeks ago. Lower, throbbing, 7 out of 10, nonradiating. Reports with worse with movement. Denies fevers or chills. Denies flank pain. Denies nausea or vomiting. Denies bowel or bladder incontinence. Denies any leg or motor weakness. No other aggravating relieving factors. Denies any other associated symptoms Allergies: Coded Allergies: No Known Allergies (Unverified , 03/17/13) Patient History Past Medical History: none Past Surgical History: none Pertinent Family History: none Social History: Denies: smoking, alcohol use, drug use Immunizations: UTD Reviewed Nursing Documentation: PMH: Agreed; PSxH: Agreed Nursing Documentation-PMH Past Medical History: No Stated History Review of Systems All Other Systems: negative except mentioned in HPI Physical Exam Vital Signs Date Time Temp Pulse Resp B/P (MAP) Pulse Ox O2 Delivery O2 Flow Rate FiO2 05/09/19 10:40 98.2 75 20 159/96 (117) 95 Room Air Sp02 EP Interpretation: reviewed, normal General Appearance: no apparent distress, alert, GCS 15, non-toxic Head: normocephalic, atraumatic Eyes: bilateral eye normal inspection, bilateral eye PERRL ENT: hearing grossly normal, normal pharynx, no angioedema, normal voice Neck: full range of motion, supple/symm/no masses Respiratory: chest non-tender, lungs clear, normal breath sounds, speaking full sentences Cardiovascular #1: regular rate, rhythm, no edema Cardiovascular #2: 2+ carotid (R), 2+ carotid (L), 2+ radial (R), 2+ radial (L) , 2+ dorsalis pedis (R), 2+ dorsalis pedis (L) Gastrointestinal: normal bowel sounds, non tender, soft, non-distended, no guarding, no rebound Rectal: deferred Genitourinary: normal inspection, no CVA tenderness Musculoskeletal: normal range of motion, gait/station normal, other - paraspinal lumbar tenderness Neurologic: alert, motor strength/tone normal, oriented x3, sensory intact, responsive, speech normal Psychiatric: judgement/insight normal, memory normal, mood/affect normal, no suicidal/homicidal ideation Reflexes: 3+ bicep (R), 3+ bicep (L), 3+ tricep (R), 3+ tricep (L), 3+ knee (R) , 3+ knee (L) Skin: no rash Lymphatic: no adenopathy Medical Decision Making Diagnostic Impression: Primary Impression: Back pain Qualified Codes: M54.5 - Low back pain ER Course Hospital Course 59-year-old male presents ED complaining of lower back pain. No evidence of trauma Differential diagnoses include: pyelonephritis, kidney stone, muscle strain, Lspine fracture Clinical course Patient placed on stretcher. After initial history physical exam reveals middle -age male in no acute distress. There is some lower paraspinal lumbar tenderness. No midline tenderness. No CVA tenderness. 5 out of 5 strength in lower extremities. No sensory deficit. Ordered pain meds, UA UA unremarkable. On reassessment pain improved. I discussed findings with patient. Pain is likely muscular. Will discharge home with medications. Safe for discharge with close outpatient follow-up. States he has a PMD Diagnosis - back pain Stable and discharged to home with prescription for Motrin, Robaxin, Lidoderm. Followup with PMD. Return to ED if symptoms recur or worsen Labs Test 05/09/19 10:49 Urine Color Yellow Urine Appearance Clear Urine pH 7 (4.5-8.0) Urine Specific [place] 1.010 (1.005-1.035) Urine Protein Negative (NEGATIVE) Urine Glucose (UA) Negative (NEGATIVE) Urine Ketones Negative (NEGATIVE) Urine Blood Negative (NEGATIVE) Urine Nitrite Negative (NEGATIVE) Urine Bilirubin Negative (NEGATIVE) Urine Urobilinogen Normal MG/DL (0.0-1.0) Urine Leukocyte Esterase 1+ (NEGATIVE) Urine RBC 0 /HPF (0 - 0) Urine WBC 0-2 /HPF (0 - 0) Urine Squamous Epithelial Cells Occasional /LPF Urine Bacteria Occasional /HPF (NONE) Last Vital Signs Date Time Temp Pulse Resp B/P (MAP) Pulse Ox O2 Delivery O2 Flow Rate FiO2 05/09/19 11:55 98.2 72 20 159/96 95 Room Air Status: improved Disposition: HOME, SELF-CARE Condition: Stable Scripts Lidocaine Patch* (Lidoderm Patch*) 1 Each Adh..patch 1 PATCH TOPIC DAILY, #7 PATCH 0 Refills Patch(es) may remain in place for up to 12 hours in any 24-hour period. Prov: Neon Banks MD 05/09/19 Methocarbamol* (ROBAXIN-750*) 750 Mg Tablet 750 MG PO TID, #21 TAB 0 Refills Prov: Neno Banks MD 05/09/19 Ibuprofen* (MOTRIN*) 600 Mg Tablet 600 MG ORAL Q8H PRN for For Pain, #30 TAB 0 Refills Prov: eNno Banks MD 05/09/19 Referrals: Peggy MOSERREFERRING (PCP) Patient Instructions: Back Pain, Adult Neno Banks MD May 09, 2019 13:27
== END 2019-05-09 11:57 | disposition home or self-care (01) ==
LOC: EMR 10:50
DX: M54.5 Low back pain (principal)
CPT/HCPCS: 81003; 99283

== ENCOUNTER 2019-08-08 07:32 | Emergency (ER) | payer OTHER ==
[~2019-08-08] VITALS: Ht 170.2 cm; Wt 83.9 kg
[~2019-08-08 07:32] MED LIST changes: +IBUPROFEN600 MG ORAL; +LIDODERM700 M1 TOPIC; +MULTIVITAMINS1 EAC8 ORAL; +ROBAXIN-750750 MG PO
[2019-08-08 07:37] VITALS: BP 172/100
--- NOTE | 2019-08-08 07:37 | NUR ---
ED Nurse Note: PT walked in to ED for C/O burning sensation while urinating with while discharge from penis x 1 week.
[2019-08-08] MEDS ORDERED: Azithromycin 250mg tab ORAL ONE (07:45)
[2019-08-08] MEDS ORDERED: Lidocaine 1% MPF 10mg/ml 5ml INJ ONE (07:45)
[2019-08-08] MEDS ORDERED: metroNIDAZOLE 500mg tab ORAL ONE (07:45)
[2019-08-08] MEDS ORDERED: metroNIDAZOLE 250mg tab ONE (07:49)
--- NOTE | 2019-08-08 07:49 | Emergency Room Report ---
History of Present Illness General Chief Complaint: Male Urogenital Problems Source: Patient Present Illness HPI Disclaimer: Please note that this report is being documented using [employer] technology. This can lead to erroneous entry secondary to incorrect interpretation by the dictating instrument. HPI: 59-year-old male presents for evaluation of penile discomfort. He reports 1 week of discomfort and burning. Denies minimal drainage and denies bleeding. Denies pain in the testicle or trauma. Reports sexual activity with multiple unprotected partners. One partner presents with him in the emergency department similar symptoms. Denies fever, chills, abdominal pain, vomiting, diarrhea, skin breakdown, ulcerations. PMH: Reviewed PSH: Reviewed Allergies: Reviewed Social Hx: Denies alcohol or tobacco use Allergies: Coded Allergies: No Known Allergies (Unverified , 03/17/13) COVID-19 Screening Contact w/high risk pt: No Recent Travel to affected area: No Experienced COVID-19 symptoms?: No COVID-[address] TEST EXAMINER: No Nursing Documentation-PMH Past Medical History: No Stated History Review of Systems All Other Systems: negative except mentioned in HPI Physical Exam Vital Signs Date Time Temp Pulse Resp B/P (MAP) Pulse Ox O2 Delivery O2 Flow Rate FiO2 08/08/19 07:35 98.2 78 16 177/98 (124) 96 Room Air General: Awake and alert, no acute distress HEENT: NC/AT. EOMI. Resp: Normal work of breathing Abdomen: Soft, nontender, nondistended : Testes in anatomic position, nontender, no evidence of injury to the urethra , no bleeding, no drainage Skin: Intact. No abrasions, laceration or rash over the exposed skin MSK: Normal tone and bulk. Moving all extremities. No obvious deformity. Neuro: Awake and alert. Mentating appropriately Medical Decision Making Diagnostic Impression: Primary Impression: urethritis ER Course 59-year-old male presents for evaluation of penile discomfort after unprotected sexual intercourse. Concern for sexual transmitted infection at this time. He presents with a sexual partner exhibiting similar symptoms. Will treat empirically with azithromycin, ceftriaxone and Flagyl. Instructed not to drink alcohol after taking Flagyl. Will be sent to outpatient facility for STD testing. No other complaints at this time. Overall nonseptic and well- appearing. Will be discharged with outpatient follow-up. Last Vital Signs Date Time Temp Pulse Resp B/P (MAP) Pulse Ox O2 Delivery O2 Flow Rate FiO2 5/24/20 07:37 98.2 82 18 172/100 96 Room Air Disposition: HOME, SELF-CARE Condition: Stable Zaki Peter MD August 08, 2019 07:48
[2019-08-08 08:33] VITALS: BP 155/98
--- NOTE | 2019-08-08 08:33 | NUR ---
ER DISCHARGE NOTE: Patient is cleared to be discharged per ERMD, pt is aox4, on room air, with stable vital signs. pt was given dc and prescription instructions, pt was able to verbalize understanding, pt id band removed. pt is able to ambulate with steady gait. pt took all belongings.
== END 2019-08-08 08:35 | disposition home or self-care (01) ==
LOC: EMR 08:22
DX: N34.2 Other urethritis (principal)
CPT/HCPCS: 96372; 99283; J0696

== ENCOUNTER 2019-10-09 11:13 | Emergency (ER) | payer OTHER ==
[~2019-10-09] VITALS: Ht 170.2 cm; Wt 86.2 kg
[2019-10-09 11:26] VITALS: BP 150/90
--- NOTE | 2019-10-09 11:29 | NUR ---
ED Nurse Note: Patient ambulated to ER d/t facial swelling, per patient "I feel like there's sandpaper on both of my eyes". Took a permanent hair color powder last night @ 2200 and started feeling the symptoms. Patient presented calm, VSS at this time, ER MD at bed side.
[2019-10-09] MEDS ORDERED: PREDNISONE20 MG ORAL (11:36)
[2019-10-09] MEDS ORDERED: DIPHENHYDRAMINE25 M1 ORAL (11:36)
[2019-10-09 11:44] VITALS: BP 150/90
--- NOTE | 2019-10-09 11:44 | NUR ---
ED Nurse Note: Pt cleared by health care Provider for discharge. DC instructions/prescription was given and explained to pt and verbalized understanding of teachings. All medical deviecs such as ID band removed. Pt is AAO x4, ambulatory and left with all personal belongings.
--- NOTE | 2019-10-09 14:10 | Emergency Room Report ---
History of Present Illness General Chief Complaint: Edema Source: Patient Present Illness HPI 59-year-old male presents with swelling around the eyes and face. Patient states that yesterday he applied a hair dye to his scalp and started noticing swelling around the eyes and itchiness. States that this is happened once before when he used a different type of hair dye. Denies any tongue swelling or throat swelling. Denies any shortness of breath or itchiness. No other aggravating relieving factors. Denies any other associated symptoms Allergies: Coded Allergies: No Known Allergies (Unverified , 03/17/13) COVID-19 Screening Contact w/high risk pt: No Recent Travel to affected area: No Experienced COVID-19 symptoms?: No COVID-19 Testing performed SPA RECEPTIONIST: No Patient History Past Medical History: none Past Surgical History: none Pertinent Family History: none Social History: Denies: smoking, alcohol use, drug use Immunizations: UTD Reviewed Nursing Documentation: PMH: Agreed; PSxH: Agreed Nursing Documentation-PMH Past Medical History: No Stated History Review of Systems All Other Systems: negative except mentioned in HPI Physical Exam Vital Signs Date Time Temp Pulse Resp B/P (MAP) Pulse Ox O2 Delivery O2 Flow Rate FiO2 10/09/19 11:17 98.1 77 18 150/90 (110) 98 Room Air Sp02 EP Interpretation: reviewed, normal General Appearance: no apparent distress, alert, GCS 15, non-toxic Head: normocephalic, other - swelling to lower eyes. no urticaria Eyes: bilateral eye normal inspection, bilateral eye PERRL ENT: hearing grossly normal, normal pharynx, no angioedema, normal voice Neck: full range of motion, supple/symm/no masses Respiratory: chest non-tender, lungs clear, normal breath sounds, speaking full sentences Cardiovascular #1: regular rate, rhythm, no edema Cardiovascular #2: 2+ carotid (R), 2+ carotid (L), 2+ radial (R), 2+ radial (L) , 2+ dorsalis pedis (R), 2+ dorsalis pedis (L) Gastrointestinal: normal bowel sounds, non tender, soft, non-distended, no guarding, no rebound Rectal: deferred Genitourinary: normal inspection, no CVA tenderness Musculoskeletal: back normal, normal range of motion, gait/station normal, non- tender Neurologic: alert, motor strength/tone normal, oriented x3, sensory intact, responsive, speech normal Psychiatric: judgement/insight normal, memory normal, mood/affect normal, no suicidal/homicidal ideation Reflexes: 3+ bicep (R), 3+ bicep (L), 3+ tricep (R), 3+ tricep (L), 3+ knee (R) , 3+ knee (L) Skin: no rash Lymphatic: no adenopathy Medical Decision Making Diagnostic Impression: Primary Impression: Allergic reaction Qualified Codes: T78.40XA - Allergy, unspecified, initial encounter ER Course Hospital Course 59 yo M presents to ED complaining of facial swelling after using hair dye Differential diagnoses include: allergic reaction, angioedema, anaphylaxis Clinical course Patient placed on stretcher. residential monitor. After initial history exam reveals male in no acute distress. There is some swelling to the lower eyelids bilaterally. No urticaria. No stridor or tongue swelling. Lungs clear. Discussed findings with patient. Vitals stable. No signs of anaphylaxis. Recommend avoiding potential allergen such as hair dye. Patient will require allergy referral. Safe for discharge with close outpatient follow-up i. I feel this is a highly complex case requiring extensive working including EKG/Rhythm strip, Xray/CT/US, Blood/urine lab work, repeat exams while in ED, and administration of strong opiates/narcotics for pain control, admission to hospital or close patient follow up. Diagnosis - allergic reaction Stable and discharged to home with prescriptions for prednisone, Benadryl. Followup with PMD. Return to ED if symptoms recur or worsen Last Vital Signs Date Time Temp Pulse Resp B/P (MAP) Pulse Ox O2 Delivery O2 Flow Rate FiO2 10/09/19 11:44 98.1 18 150/90 98 Room Air 10/09/19 11:26 77 Status: improved Disposition: HOME, SELF-CARE Condition: Stable Scripts Diphenhydramine Hcl* (DIPHENHYDRAMINE HCL*) 25 Mg Capsule 25 MG ORAL Q6H PRN for Itching for 5 Days, #30 CAP 0 Refills Prov: Neno Banks MD 10/09/19 Prednisone* (PREDNISONE*) 20 Mg Tablet 40 MG ORAL DAILY for 5 Days, TAB Prov: Neno Banks MD 10/09/19 Referrals: Peggy MOSERREFERRING (PCP) Patient Instructions: Drug Allergy Additional Instructions: you need to avoid the product causing the allergic reaction. you also need referral to an land management supervisor. Neno Banks MD Oct 09, 2019 14:10
== END 2019-10-09 11:52 | disposition home or self-care (01) ==
LOC: EMR 11:36
DX: T78.40XA Allergy, unspecified, initial encounter (principal); X58.XXXA Exposure to other specified factors, initial encounter; Y92.9 Unspecified place or not applicable
CPT/HCPCS: 99282

== ENCOUNTER 2020-01-06 09:02 | Emergency (ER) | payer OTHER ==
[~2020-01-06] VITALS: Ht 170.2 cm; Wt 83.9 kg
[2020-01-06 09:27] VITALS: BP 152/89
--- NOTE | 2020-01-06 09:31 | Emergency Room Report ---
History of Present Illness General Chief Complaint: Male Urogenital Problems Source: Patient Present Illness HPI Disclaimer: Please note that this report is being documented using DRAGON technology. This can lead to erroneous entry secondary to incorrect interpretation by the dictating instrument. HPI: 59-year-old male presents for evaluation of dysuria. Symptoms present for 4 days. Denies penile discharge or testicular pain. Denies fever, nausea, vomiting or diarrhea. Reports recent unprotected sexual intercourse. Reports prior history of STI. Denies ulcers, vesicles, rash. No other symptoms reported. Requesting treatment for STD. PMH: Reviewed PSH: reviewed Allergies: Reviewed Social Hx: Reviewed Allergies: Coded Allergies: No Known Allergies (Unverified , 03/17/13) COVID-19 Screening Contact w/high risk pt: No Recent Travel to affected area: No Experienced COVID-19 symptoms?: No COVID-19 Testing performed CONTRACTS ADVISOR: No Nursing Documentation-PMH Past Medical History: No Stated History Review of Systems All Other Systems: negative except mentioned in HPI Physical Exam Vital Signs Date Time Temp Pulse Resp B/P (MAP) Pulse Ox O2 Delivery O2 Flow Rate FiO2 01/06/20 09:19 98.2 71 16 155/92 (113) 99 General: Awake and alert, no acute distress HEENT: NC/AT. EOMI. Resp: Normal work of breathing Abdomen: Soft, nontender nondistended Skin: Intact. No abrasions, laceration or rash over the exposed skin MSK: Normal tone and bulk. Moving all extremities. No obvious deformity. Neuro: Awake and alert. Mentating appropriately Medical Decision Making Diagnostic Impression: Primary Impression: urethritis ER Course 59-year-old male presents for evaluation of 4 days dysuria. Urinalysis unremarkable does not suggest acute urinary tract infection. Patient reports recent exposure to STD. Will treat with ceftriaxone and azithromycin. Referred to STD clinic for full STD panel. Encouraged him to have his partners tested as well. Discussed reasons to return to the ED. He understands and agrees with this treatment plan. Laboratory Tests Test 01/06/20 09:20 Urine Color Pale yellow Urine Appearance Clear Urine pH 5 (4.5-8.0) Urine Specific [place] 1.010 (1.005-1.035) Urine Protein Negative (NEGATIVE) Urine Glucose (UA) Negative (NEGATIVE) Urine Ketones Negative (NEGATIVE) Urine Blood Negative (NEGATIVE) Urine Nitrite Negative (NEGATIVE) Urine Bilirubin Negative (NEGATIVE) Urine Urobilinogen Normal MG/DL (0.0-1.0) Urine Leukocyte Esterase Negative (NEGATIVE) Last Vital Signs Date Time Temp Pulse Resp B/P (MAP) Pulse Ox O2 Delivery O2 Flow Rate FiO2 01/06/20 09:19 98.2 71 16 155/92 (113) 99 Disposition: HOME, SELF-CARE Condition: Stable Zaki Peter MD Jan 06, 2020 09:31
[2020-01-06 09:50] LABS: APPEARANCE,URINE CLEAR; BILIRUBIN, URINE NEGATIVE (NEGATIVE); COLOR,URINE PALE YELLOW; GLUCOSE, URINE (UA) NEGATIVE (NEGATIVE); KETONES,URINE NEGATIVE (NEGATIVE); LEUKOCYTE ESTERASE ,URINE NEGATIVE (NEGATIVE); NITRITE,URINE NEGATIVE (NEGATIVE); PH,URINE 5 (4.5-8.0); PROTEIN,URINE NEGATIVE (NEGATIVE); UROBILINOGEN,URINE NORMAL MG/DL (0.0-1.0)
[2020-01-06] MEDS ORDERED: Azithromycin 250mg tab ORAL ONE (10:15)
[2020-01-06] MEDS ORDERED: Lidocaine 1% MPF 10mg/ml 5ml INJ ONE (10:15)
[2020-01-06 11:01] VITALS: BP 147/86
== END 2020-01-06 11:01 | disposition home or self-care (01) ==
LOC: EMR 10:00
DX: N34.2 Other urethritis (principal)
CPT/HCPCS: 81003; 96372; 99283; J0696